=== PATIENT | male | born 2000 | race Caucasian/White ===

== ENCOUNTER 2023-01-31 06:57 | Emergency (ER) | payer MEDICAID ==
[~2023-01-31] VITALS: Ht 175.3 cm; Wt 55.0 kg
[2023-01-31 07:44] VITALS: O2SAT 100
[2023-01-31] MEDS ORDERED: IBUPROFEN 800MG TABLET PO ONE (09:30)
[2023-01-31] MEDS ORDERED: PSEU120T84 MT (09:30)
[2023-01-31] MEDS ORDERED: IBUP-2030 MT (09:30)
[2023-01-31] MEDS ORDERED: ACETAMINOPHEN 325MG TABLET PO ONE (09:30)
[2023-01-31] MEDS ORDERED: AMOX1TAB16 MT (09:30)
[2023-01-31 09:37] VITALS: BP 107/70
[2023-01-31] MEDS ORDERED: IBUPROFEN 400MG TABLET PO NR (09:45)
[2023-01-31] MEDS ORDERED: PSEUDOEPHEDRINE HCL 30MG TABLET PO ONE (09:45)
[2023-01-31 11:16] VITALS: PULSE 74; RESP 16; TEMP 97.9
== END 2023-01-31 11:18 | disposition home or self-care (01) ==
LOC: ER 06:57
DX: J01.90 Acute sinusitis, unspecified (principal)
CPT/HCPCS: 99284